=== PATIENT | female | born 1950 | race African-American/Black ===

== ENCOUNTER 2020-01-26 10:19 | Emergency (ER) | payer MEDICARE, OTHER ==
[~2020-01-26] VITALS: Ht 165.1 cm; Wt 105.0 kg
[2020-01-26] MEDS ORDERED: SODIUM CHLORIDE 0.9% 1,000 ML IV ONE (12:02)
[2020-01-26 13:55] LABS: BASOPHILS % 0.5 % (0.0-2.0); EOSINOPHILS % 1.3 % (0.0-5.0); HEMATOCRIT. 27.2 % (36.0-48.0); HEMOGLOBIN. 8.6 g/dL (12.0-16.0); LYMPHOCYTES % 26.2 % (20.0-50.0); MEAN CORPUSCULAR HEMOGLOBIN 26.7 pg (28.0-32.0); MEAN PLATELET VOLUME 8.2 fl (7.4-10.4); MONOCYTES % 8.8 % (2.0-8.0); NEUTROPHILS % 63.2 % (40.0-76.0); PLATELET 332 x1000/uL (130-400); RED BLOOD CELL COUNT 3.23 mill/uL (4.2-5.4)
[2020-01-26 13:57] LABS: CHLORIDE 112 mEq/L (98-107)
[2020-01-26 14:09] LABS: INR 0.9; PARTIAL THROMBOPLASTIN TIME 25.7 sec (23.4-31.0)
[2020-01-26 15:14] VITALS: BP 144/82
== END 2020-01-26 15:24 | disposition home or self-care (01) ==
LOC: ER 10:19
DX: N93.8 Other specified abnormal uterine and vaginal bleeding (principal); D25.9 Leiomyoma of uterus, unspecified; E11.9 Type 2 diabetes mellitus without complications; E78.00 Pure hypercholesterolemia, unspecified; I10 Essential (primary) hypertension; F03.90 Unspecified dementia, unspecified severity, without behavioral disturbance, psychotic disturbance, mood disturbance, and anxiety
CPT/HCPCS: 36415; 71045; 76830; 76856; 80053; 85025; 85610; 85730; 86850; 86900; 86901; 93005; 99285; J7030

== ENCOUNTER 2021-06-09 09:22 | Inpatient (IN) | payer MEDICARE, OTHER ==
[~2021-06-09] VITALS: Ht 165.1 cm; Wt 99.5 kg
[~2021-06-09 09:22] MED LIST: CIPR-263 MT; HYDR-4001 MT; METR500T MT
[2021-06-09] MEDS ORDERED: MORPHINE SULFATE 4 MG/ML CPJ (NOT FOR IM USE) IV STA (10:02)
[2021-06-09] MEDS ORDERED: ONDANSETRON HCL 4MG/2ML INJ IV STA (10:02)
[2021-06-09] MEDS ORDERED: NITROGLYCERIN 0.4MG TABLET SL SL PRN (10:15)
[2021-06-09] MEDS ORDERED: ASPIRIN 81MG TABLET PO ONE (10:15)
[2021-06-09 10:28] LABS: BASOPHILS % 0.4 % (0.0-2.0); EOSINOPHILS % 0.5 % (0.0-5.0); HEMATOCRIT. 41.6 % (36.0-48.0); HEMOGLOBIN. 13.7 g/dL (12.0-16.0); LYMPHOCYTES % 19.1 % (20.0-50.0); MEAN CORPUSCULAR HEMOGLOBIN 30.2 pg (28.0-32.0); MEAN CORPUSCULAR VOLUME 91.6 fL (81.0-99.0); MEAN PLATELET VOLUME 8.7 fl (7.4-10.4); MONOCYTES % 7.3 % (2.0-8.0); NEUTROPHILS % 72.7 % (40.0-76.0); PLATELET 321 x1000/uL (130-400); RED BLOOD CELL COUNT 4.54 mill/uL (4.2-5.4)
[2021-06-09 10:35] LABS: CHLORIDE 107 mEq/L (98-107)
[2021-06-09] MEDS ORDERED: MORPHINE SULFATE 2 MG/ML CPJ (NOT FOR IM USE) IV NR (10:52)
[2021-06-09] MEDS ORDERED: AMLODIPINE 5MG TABLET PO ONE (14:15)
[2021-06-09 18:45] VITALS: BP 126/95
[2021-06-09 20:00] VITALS: BP 154/91
[2021-06-09] MEDS ORDERED: CEFTRIAXONE 1 G PREMIX 50 ML IV SCH (23:15)
[2021-06-09] MEDS ORDERED: ACETAMINOPHEN 325MG TABLET PO PRN (23:15)
[2021-06-10] VITALS: BP 161/79
[2021-06-10] MEDS ORDERED: ACETAMINOPHEN 325MG TABLET PO PRN (01:00)
[2021-06-10] MEDS: CEFTRIAXONE 1,000 MG in DEXTROSE 5% WATER 50 ML IV SCH ×2 (01:21→20:08)
[2021-06-10] MEDS ORDERED: CLON0.2T PO (01:47)
[2021-06-10] MEDS ORDERED: HYDR25TA PO (01:48)
[2021-06-10] MEDS ORDERED: LOSA50TA41 PO (01:49)
[2021-06-10] MEDS ORDERED: VERA80TA7 PO (01:54)
[2021-06-10] MEDS ORDERED: LEVO50TA8 PO (01:54)
[2021-06-10] MEDS ORDERED: ASPI-1497 PO (01:54)
[2021-06-10] MEDS ORDERED: ATOR80TA PO (01:54)
[2021-06-10] MEDS ORDERED: TOPUD PO (01:56)
[2021-06-10 04:00] VITALS: BP 140/77
[2021-06-10] MEDS: LEVOTHYROXINE SODIUM 50MCG TABLET PO SCH (06:19)
[2021-06-10] MEDS ORDERED: LEVOTHYROXINE SODIUM 50MCG TABLET PO SCH (06:40)
[2021-06-10 08:00] VITALS: BP 164/87
[2021-06-10] MEDS ORDERED: LOSARTAN POTASSIUM 50 MG TABLET PO SCH (09:00)
[2021-06-10] MEDS ORDERED: HYDROCHLOROTHIAZIDE 25MG TABLET PO SCH (09:00)
[2021-06-10] MEDS ORDERED: ASPIRIN 81MG TABLET PO SCH (09:00)
[2021-06-10] MEDS ORDERED: CLONIDINE 0.2MG TABLET PO SCH (09:00)
[2021-06-10] MEDS ORDERED: VERAPAMIL HCL 80 MG TABLET PO SCH (09:00)
[2021-06-10] MEDS: CLONIDINE 0.2MG TABLET PO SCH ×2 (10:03→17:18)
[2021-06-10] MEDS: LOSARTAN POTASSIUM 50 MG TABLET PO SCH ×2 (10:03→17:18)
[2021-06-10] MEDS: ASPIRIN 81MG TABLET PO SCH (10:03)
[2021-06-10] MEDS: VERAPAMIL HCL 80 MG TABLET PO SCH ×2 (10:04→17:18)
[2021-06-10] MEDS: HYDROCHLOROTHIAZIDE 25MG TABLET PO SCH ×2 (10:04→17:17)
[2021-06-10 12:00] VITALS: BP 148/79
[2021-06-10] MEDS ORDERED: REGADENOSON 0.4 MG/5 ML IV NR (12:30)
[2021-06-10] MEDS: ENOXAPARIN 40MG/0.4ML SYR SUBCUT SCH (13:58)
[2021-06-10] MEDS: NITROGLYCERIN OINT 1GM/INCH UDPKT TD SCH ×2 (13:59→22:57)
[2021-06-10 16:00] VITALS: BP 126/74
[2021-06-10 17:40] LABS: CLARITY URINE CLOUDY (CLEAR); COLOR URINE YELLOW (YELLOW); KETONES URINE TRACE (NEGATIVE); LEUKOCYTE ESTERASE URINE 1+ (NEGATIVE); NITRITE URINE NEGATIVE (NEGATIVE); OCCULT BLOOD URINE NEGATIVE (NEGATIVE); PROTEIN URINE 3+ (NEGATIVE); SPECIFIC GRAVITY URINE 1.022 (1.005-1.030); UROBILINOGEN URINE 0.2 E.U./dL (0.2-1.0)
[2021-06-10 20:00] VITALS: BP 101/85
[2021-06-10] MEDS: ATORVASTATIN CALCIUM 40MG TABLET PO SCH (20:08)
[2021-06-10 20:36] LABS: BASOPHILS % 0.5 % (0.0-2.0); EOSINOPHILS % 1.1 % (0.0-5.0); HEMATOCRIT. 36.7 % (36.0-48.0); LYMPHOCYTES % 27.9 % (20.0-50.0); MEAN CORPUSCULAR HEMOGLOBIN 29.9 pg (28.0-32.0); MEAN CORPUSCULAR VOLUME 91.5 fL (81.0-99.0); MONOCYTES % 9.2 % (2.0-8.0); NEUTROPHILS % 61.3 % (40.0-76.0); PLATELET 265 x1000/uL (130-400); RED BLOOD CELL COUNT 4.01 mill/uL (4.2-5.4); RED CELL DISTRIBUTION WIDTH 15.1 % (11.6-14.6)
[2021-06-10] MEDS ORDERED: ATORVASTATIN CALCIUM 40MG TABLET PO SCH (21:00)
[2021-06-10 21:03] LABS: CREATINE KINASE MB FRACTION 3.2 ng/mL (0.5-3.6)
[2021-06-11] VITALS: BP 107/82
[2021-06-11 04:00] VITALS: BP 100/50
[2021-06-11] MEDS: LEVOTHYROXINE SODIUM 50MCG TABLET PO SCH (06:30)
[2021-06-11] MEDS: NITROGLYCERIN OINT 1GM/INCH UDPKT TD SCH ×3 (06:30→22:43)
[2021-06-11 07:37] LABS: BASOPHILS % 0.4 % (0.0-2.0); EOSINOPHILS % 1.3 % (0.0-5.0); HEMATOCRIT. 35.4 % (36.0-48.0); HEMOGLOBIN. 11.5 g/dL (12.0-16.0); MEAN CORPUSCULAR HEMOGLOBIN 29.8 pg (28.0-32.0); MEAN CORPUSCULAR VOLUME 91.5 fL (81.0-99.0); MEAN PLATELET VOLUME 8.9 fl (7.4-10.4); MONOCYTES % 10.2 % (2.0-8.0); NEUTROPHILS % 63.1 % (40.0-76.0); PLATELET 256 x1000/uL (130-400); RED BLOOD CELL COUNT 3.87 mill/uL (4.2-5.4); RED CELL DISTRIBUTION WIDTH 14.9 % (11.6-14.6)
[2021-06-11 07:55] VITALS: BP 104/53
[2021-06-11] MEDS: LOSARTAN POTASSIUM 50 MG TABLET PO SCH (09:00)
[2021-06-11] MEDS: CLONIDINE 0.2MG TABLET PO SCH (09:00)
[2021-06-11] MEDS: VERAPAMIL HCL 80 MG TABLET PO SCH ×2 (09:00→16:33)
[2021-06-11] MEDS: ASPIRIN 81MG TABLET PO SCH (09:55)
[2021-06-11 12:00] VITALS: BP 122/71
[2021-06-11] MEDS: ENOXAPARIN 40MG/0.4ML SYR SUBCUT SCH (14:08)
[2021-06-11 16:10] VITALS: BP 127/84
[2021-06-11 18:04] LABS: PROTHROMBIN TIME 10.4 sec (9.6-11.0)
[2021-06-11 18:27] LABS: CREATINE KINASE 192 IU/L (26-192)
[2021-06-11 20:00] VITALS: BP 118/61
[2021-06-11] MEDS: CEFTRIAXONE 1,000 MG in DEXTROSE 5% WATER 50 ML IV SCH (20:24)
[2021-06-11] MEDS: ATORVASTATIN CALCIUM 40MG TABLET PO SCH (20:24)
[2021-06-12] VITALS (7 sets, daily range): BP systolic 142–210; BP diastolic 73–106
[2021-06-12] MEDS: HYDRALAZINE 20MG/ML VIAL IV PRN ×2 (04:42→21:05)
[2021-06-12] MEDS: LEVOTHYROXINE SODIUM 50MCG TABLET PO SCH (05:50)
[2021-06-12] MEDS: NITROGLYCERIN OINT 1GM/INCH UDPKT TD SCH ×3 (05:50→21:06)
[2021-06-12 06:55] LABS: BASOPHILS % 0.5 % (0.0-2.0); EOSINOPHILS % 1.2 % (0.0-5.0); HEMATOCRIT. 38.1 % (36.0-48.0); HEMOGLOBIN. 12.5 g/dL (12.0-16.0); MEAN CORPUSCULAR HEMOGLOBIN 30.5 pg (28.0-32.0); MEAN CORPUSCULAR VOLUME 92.6 fL (81.0-99.0); MEAN PLATELET VOLUME 9.1 fl (7.4-10.4); MONOCYTES % 10.1 % (2.0-8.0); NEUTROPHILS % 64.2 % (40.0-76.0); PLATELET 255 x1000/uL (130-400); RED BLOOD CELL COUNT 4.11 mill/uL (4.2-5.4); RED CELL DISTRIBUTION WIDTH 14.8 % (11.6-14.6)
[2021-06-12 07:19] LABS: CHLORIDE 106 mEq/L (98-107)
[2021-06-12 07:31] LABS: PHOSPHORUS 3.8 mg/dL (2.5-4.9)
[2021-06-12] MEDS: ASPIRIN 81MG TABLET PO SCH (08:37)
[2021-06-12] MEDS: VERAPAMIL HCL 80 MG TABLET PO SCH ×2 (08:38→17:09)
[2021-06-12] MEDS ORDERED: REGADENOSON 0.4 MG/5 ML IV ONE (10:00)
[2021-06-12] MEDS: ENOXAPARIN 40MG/0.4ML SYR SUBCUT SCH (14:17)
[2021-06-12] MEDS: METOPROLOL TARTRATE 25MG TABLET PO SCH (21:05)
[2021-06-12] MEDS: ATORVASTATIN CALCIUM 40MG TABLET PO SCH (21:05)
[2021-06-12] MEDS: CEFTRIAXONE 1,000 MG in DEXTROSE 5% WATER 50 ML IV SCH (21:06)
[2021-06-13] VITALS (17 sets, daily range): BP systolic 123–195; BP diastolic 60–97
[2021-06-13] MEDS ORDERED: SODIUM CHLORIDE 0.9% 1,000 ML IV SCH
[2021-06-13] MEDS: LEVOTHYROXINE SODIUM 50MCG TABLET PO SCH (05:28)
[2021-06-13] MEDS: NITROGLYCERIN OINT 1GM/INCH UDPKT TD SCH ×3 (05:29→22:21)
[2021-06-13] MEDS: HYDRALAZINE 20MG/ML VIAL IV PRN (05:29)
[2021-06-13 06:24] LABS: BASOPHILS % 0.6 % (0.0-2.0); EOSINOPHILS % 1.3 % (0.0-5.0); HEMATOCRIT. 37.2 % (36.0-48.0); HEMOGLOBIN. 12.1 g/dL (12.0-16.0); LYMPHOCYTES % 18.4 % (20.0-50.0); MEAN CORPUSCULAR HEMOGLOBIN 29.9 pg (28.0-32.0); MEAN CORPUSCULAR VOLUME 91.6 fL (81.0-99.0); MEAN PLATELET VOLUME 9.1 fl (7.4-10.4); MONOCYTES % 10.3 % (2.0-8.0); NEUTROPHILS % 69.4 % (40.0-76.0); PLATELET 261 x1000/uL (130-400); RED BLOOD CELL COUNT 4.06 mill/uL (4.2-5.4); RED CELL DISTRIBUTION WIDTH 14.7 % (11.6-14.6)
[2021-06-13 07:25] LABS: PHOSPHORUS 3.3 mg/dL (2.5-4.9)
[2021-06-13] MEDS ORDERED: HEPARIN SODIUM 1,000 UNIT/1ML VIAL IV ONE (08:28)
[2021-06-13] MEDS ORDERED: NITROGLYCERIN 50MCG/ML 10ML VIAL (CATH LAB) IV ONE (08:28)
[2021-06-13] MEDS ORDERED: NICARDIPINE 100MCG/ML 10ML VIAL (CATH LAB) IV ONE (08:28)
[2021-06-13] MEDS: METOPROLOL TARTRATE 25MG TABLET PO SCH ×2 (08:39→21:02)
[2021-06-13] MEDS: VERAPAMIL HCL 80 MG TABLET PO SCH ×2 (08:39→16:30)
[2021-06-13] MEDS: ASPIRIN 81MG TABLET PO SCH (08:44)
[2021-06-13] MEDS ORDERED: MIDAZOLAM HCL 2 MG/2 ML VIAL ONE ×2 (08:51→10:48)
[2021-06-13] MEDS ORDERED: LIDOCAINE HCL 2% JELLY 5ML ONE (08:52)
[2021-06-13] MEDS ORDERED: TETRACAINE/BENZOCAINE/BUTAMBEN 20 GM SPRAY MM ONE (08:52)
[2021-06-13] MEDS ORDERED: FENTANYL CITRATE/PF 50MCG/ML 2ML VIAL ONE ×2 (08:52→10:49)
[2021-06-13] MEDS ORDERED: IODIXANOL 320MG/ML 100 ML BOTTLE IV ONE (10:49)
[2021-06-13] MEDS ORDERED: LIDOCAINE HCL 1% 30ML VIAL (10MG/ML) ONE (10:49)
[2021-06-13] MEDS ORDERED: HYDRALAZINE 20MG/ML VIAL ONE (11:55)
[2021-06-13] MEDS ORDERED: ATROPINE SULFATE 1MG/10ML SYR IV PRN (12:00)
[2021-06-13] MEDS ORDERED: ALPRAZOLAM 0.25 MG TABLET PO PRN (12:45)
[2021-06-13] MEDS ORDERED: ACETAMINOPHEN 325MG TABLET PO PRN (12:45)
[2021-06-13] MEDS: CLONIDINE 0.1MG TABLET PO SCH ×2 (14:22→22:00)
[2021-06-13 16:42] LABS: BASOPHILS % 0.3 % (0.0-2.0); EOSINOPHILS % 0.7 % (0.0-5.0); HEMATOCRIT. 38.6 % (36.0-48.0); HEMOGLOBIN. 12.6 g/dL (12.0-16.0); LYMPHOCYTES % 14.6 % (20.0-50.0); MEAN CORPUSCULAR VOLUME 91.6 fL (81.0-99.0); MEAN PLATELET VOLUME 9.1 fl (7.4-10.4); MONOCYTES % 7.6 % (2.0-8.0); NEUTROPHILS % 76.8 % (40.0-76.0); PLATELET 287 x1000/uL (130-400); RED BLOOD CELL COUNT 4.21 mill/uL (4.2-5.4); RED CELL DISTRIBUTION WIDTH 14.7 % (11.6-14.6)
[2021-06-13 16:48] LABS: CHLORIDE 108 mEq/L (98-107)
[2021-06-13] MEDS: ALLOPURINOL 300 MG TABLET PO SCH (21:00)
[2021-06-13] MEDS ORDERED: DOCUSATE SODIUM 100MG CAPSULE PO SCH (21:00)
[2021-06-13] MEDS ORDERED: ASCORBIC ACID 500 MG TABLET PO NR (21:00)
[2021-06-13] MEDS: ATORVASTATIN CALCIUM 40MG TABLET PO SCH (21:01)
[2021-06-13] MEDS: CEFTRIAXONE 1,000 MG in DEXTROSE 5% WATER 50 ML IV SCH (21:21)
[2021-06-14] VITALS (11 sets, daily range): BP systolic 106–155; BP diastolic 71–95
[2021-06-14 04:11] LABS: MICROALBUMIN RANDOM URINE 140.3 ug/mL (Not Estab.)
[2021-06-14] MEDS: CLONIDINE 0.1MG TABLET PO SCH ×3 (06:00→22:07)
[2021-06-14] MEDS: ALLOPURINOL 300 MG TABLET PO SCH (06:01)
[2021-06-14] MEDS: LEVOTHYROXINE SODIUM 50MCG TABLET PO SCH (06:01)
[2021-06-14] MEDS: NITROGLYCERIN OINT 1GM/INCH UDPKT TD SCH (06:01)
[2021-06-14 06:40] LABS: BASOPHILS % 0.4 % (0.0-2.0); EOSINOPHILS % 0.5 % (0.0-5.0); HEMATOCRIT. 36.7 % (36.0-48.0); HEMOGLOBIN. 12.1 g/dL (12.0-16.0); LYMPHOCYTES % 16.8 % (20.0-50.0); MEAN CORPUSCULAR HEMOGLOBIN 30.4 pg (28.0-32.0); MEAN PLATELET VOLUME 8.9 fl (7.4-10.4); MONOCYTES % 12.3 % (2.0-8.0); PLATELET 249 x1000/uL (130-400); RED BLOOD CELL COUNT 3.99 mill/uL (4.2-5.4); RED CELL DISTRIBUTION WIDTH 15.1 % (11.6-14.6)
[2021-06-14 08:41] LABS: PHOSPHORUS 3.7 mg/dL (2.5-4.9)
[2021-06-14] MEDS: VERAPAMIL HCL 80 MG TABLET PO SCH (09:00)
[2021-06-14] MEDS: ASPIRIN 81MG TABLET PO SCH (10:05)
[2021-06-14] MEDS: METOPROLOL TARTRATE 25MG TABLET PO SCH ×2 (10:05→20:19)
[2021-06-14] MEDS: CEFTRIAXONE 1,000 MG in DEXTROSE 5% WATER 50 ML IV SCH (20:19)
[2021-06-14] MEDS: ATORVASTATIN CALCIUM 40MG TABLET PO SCH (20:19)
[2021-06-14] MEDS: AMLODIPINE 2.5MG TABLET PO SCH (20:19)
[2021-06-15] VITALS (12 sets, daily range): BP systolic 96–130; BP diastolic 51–81
[2021-06-15] MEDS: CLONIDINE 0.1MG TABLET PO SCH ×3 (06:10→22:36)
[2021-06-15] MEDS: LEVOTHYROXINE SODIUM 50MCG TABLET PO SCH (06:11)
[2021-06-15 07:23] LABS: BASOPHILS % 0.4 % (0.0-2.0); HEMATOCRIT. 36.2 % (36.0-48.0); HEMOGLOBIN. 11.6 g/dL (12.0-16.0); LYMPHOCYTES % 20.5 % (20.0-50.0); MEAN CORPUSCULAR HEMOGLOBIN 29.7 pg (28.0-32.0); MEAN CORPUSCULAR VOLUME 92.7 fL (81.0-99.0); MEAN PLATELET VOLUME 9.2 fl (7.4-10.4); MONOCYTES % 10.9 % (2.0-8.0); NEUTROPHILS % 67.2 % (40.0-76.0); PLATELET 225 x1000/uL (130-400); RED CELL DISTRIBUTION WIDTH 15.4 % (11.6-14.6)
[2021-06-15 07:34] LABS: PHOSPHORUS 3.4 mg/dL (2.5-4.9)
[2021-06-15] MEDS: ASPIRIN 81MG TABLET PO SCH (08:24)
[2021-06-15] MEDS: ISOSORBIDE MONONITRATE 30MG TABLET SR 24HR PO SCH ×2 (08:28→09:42)
[2021-06-15] MEDS: METOPROLOL TARTRATE 25MG TABLET PO SCH ×2 (08:28→20:32)
[2021-06-15] MEDS: AMLODIPINE 2.5MG TABLET PO SCH ×2 (08:29→20:32)
[2021-06-15] MEDS: NITROGLYCERIN 0.4MG TABLET SL SL PRN ×3 (09:31→20:20)
[2021-06-15] MEDS ORDERED: LIDOCAINE HCL 1% 30ML VIAL (10MG/ML) ONE (12:21)
[2021-06-15] MEDS: ATORVASTATIN CALCIUM 40MG TABLET PO SCH (20:32)
[2021-06-16] VITALS (12 sets, daily range): BP systolic 117–162; BP diastolic 53–93
[2021-06-16] MEDS: CLONIDINE 0.1MG TABLET PO SCH (06:12)
[2021-06-16] MEDS: LEVOTHYROXINE SODIUM 50MCG TABLET PO SCH (06:12)
[2021-06-16] MEDS ORDERED: ALLOPURINOL 300 MG TABLET PO NR (07:45)
[2021-06-16 07:55] LABS: BASOPHILS % 0.6 % (0.0-2.0); EOSINOPHILS % 1.5 % (0.0-5.0); HEMATOCRIT. 35.1 % (36.0-48.0); HEMOGLOBIN. 11.4 g/dL (12.0-16.0); LYMPHOCYTES % 17.7 % (20.0-50.0); MEAN CORPUSCULAR HEMOGLOBIN 29.9 pg (28.0-32.0); MEAN CORPUSCULAR VOLUME 91.7 fL (81.0-99.0); MONOCYTES % 9.2 % (2.0-8.0); RED BLOOD CELL COUNT 3.82 mill/uL (4.2-5.4); RED CELL DISTRIBUTION WIDTH 14.7 % (11.6-14.6)
[2021-06-16] MEDS: ASPIRIN 81MG TABLET PO SCH (08:46)
[2021-06-16] MEDS: ISOSORBIDE MONONITRATE 30MG TABLET SR 24HR PO SCH (08:46)
[2021-06-16] MEDS: METOPROLOL TARTRATE 25MG TABLET PO SCH ×2 (08:46→21:19)
[2021-06-16] MEDS: ACETYLCYSTEINE 200MG/ML 20% VIAL 4ML PO SCH ×2 (08:52→21:18)
[2021-06-16] MEDS: NITROGLYCERIN 0.4MG TABLET SL SL PRN ×2 (08:52→09:00)
[2021-06-16 10:46] LABS: PLATELET 216 x1000/uL (130-400)
[2021-06-16 17:31] LABS: PROTHROMBIN TIME 10.7 sec (9.6-11.0)
[2021-06-16] MEDS: DOCUSATE SODIUM 100MG CAPSULE PO SCH (18:18)
[2021-06-16] MEDS ORDERED: BISACODYL 10MG SUPP PR PRN (21:00)
[2021-06-16] MEDS ORDERED: CHLORHEXIDINE GLUCONATE 4% EXTERNAL USE TOP SCH (21:00)
[2021-06-16] MEDS ORDERED: DIPHENHYDRAMINE 25MG CAPSULE PO PRN (21:00)
[2021-06-16] MEDS: ATORVASTATIN CALCIUM 40MG TABLET PO SCH (21:17)
[2021-06-17] VITALS (54 sets, daily range): BP systolic 79–174; BP diastolic 47–93
[2021-06-17] MEDS ORDERED: BLOOD SUGAR DIAGNOSTIC STRIP TEST SCH (04:00)
[2021-06-17] MEDS: HYDRALAZINE 20MG/ML VIAL IV PRN ×3 (04:16→18:21)
[2021-06-17] MEDS ORDERED: HEPARIN 1000 UNITS/ML 10ML ONE (05:54)
[2021-06-17] MEDS ORDERED: DOPAMINE 400MG/250ML PREMIX 250 ML IV ONE (05:54)
[2021-06-17] MEDS ORDERED: THROMBIN (BOVINE) 5000 UNITS/VIAL TOP ONE (05:56)
[2021-06-17] MEDS ORDERED: ACETAMINOPHEN 500MG TABLET ONE (05:56)
[2021-06-17] MEDS ORDERED: SKIN ADHESIVE 0.7 GM EA TOP ONE (05:56)
[2021-06-17] MEDS ORDERED: POLYMYXIN B SULFATE 500000 UNITS/VIAL ONE (05:57)
[2021-06-17] MEDS: LEVOTHYROXINE SODIUM 50MCG TABLET PO SCH (05:58)
[2021-06-17] MEDS ORDERED: CHLORHEXIDINE GLUCONATE 4% EXTERNAL USE TOP NR (06:00)
[2021-06-17] MEDS ORDERED: CEFAZOLIN 2,000 MG in DEXT 5% WATER 100 ML IV SCH (06:00)
[2021-06-17] MEDS ORDERED: PAPAVERINE HCL 180MG in SODIUM CHLORIDE 0.9% 24ML IV SCH (06:00)
[2021-06-17] MEDS ORDERED: AMINOCAPROIC ACID 5,000 MG in SODIUM CHLORIDE 0.9% 230 ML IV SCH (06:00)
[2021-06-17] MEDS ORDERED: INSULIN REGULAR (DRIP) 100 UNITS in SODIUM CHLORIDE 0.9% 99 ML IV SCH (06:00)
[2021-06-17] MEDS ORDERED: DEL NIDO ELECTROLYTE-S(PH 7.4) 1,000 ML IV SCH ×2 (06:00)
[2021-06-17] MEDS ORDERED: NOREPINEPHRINE 8 MG in DEXT 5% WATER 242 ML IV SCH (06:00)
[2021-06-17] MEDS ORDERED: EPINEPHRINE 5 MG in DEXT 5% WATER 245 ML IV SCH (06:00)
[2021-06-17 06:57] LABS: BASOPHILS % 0.8 % (0.0-2.0); EOSINOPHILS % 1.6 % (0.0-5.0); HEMATOCRIT. 38.2 % (36.0-48.0); HEMOGLOBIN. 12.7 g/dL (12.0-16.0); LYMPHOCYTES % 15.9 % (20.0-50.0); MEAN CORPUSCULAR HEMOGLOBIN 30.1 pg (28.0-32.0); MEAN CORPUSCULAR VOLUME 90.6 fL (81.0-99.0); MEAN PLATELET VOLUME 8.8 fl (7.4-10.4); MONOCYTES % 8.7 % (2.0-8.0); PLATELET 250 x1000/uL (130-400); RED BLOOD CELL COUNT 4.22 mill/uL (4.2-5.4); RED CELL DISTRIBUTION WIDTH 14.8 % (11.6-14.6)
[2021-06-17 07:08] LABS: PARTIAL THROMBOPLASTIN TIME 27.7 sec (23.4-31.0); PROTHROMBIN TIME 10.6 sec (9.6-11.0)
[2021-06-17] MEDS ORDERED: ETOMIDATE 2MG/ML 10ML VIAL IV ONE (07:09)
[2021-06-17] MEDS ORDERED: PROPOFOL 200MG/20ML VIAL IV ONE (07:09)
[2021-06-17] MEDS ORDERED: ROCURONIUM BROMIDE 10MG/ML VIAL 5ML IV ONE (07:09)
[2021-06-17] MEDS ORDERED: FENTANYL CITRATE/PF 50MCG/ML 5ML VIAL ONE (07:13)
[2021-06-17] MEDS ORDERED: LIDOCAINE HCL/PF 1% 10 MG/ML 5ML VIAL ONE (07:34)
[2021-06-17] MEDS ORDERED: SUCCINYLCHOLINE CHLORIDE 200MG/10ML IV ONE (07:36)
[2021-06-17] MEDS ORDERED: LABETALOL HCL 5MG/ML VIAL 20ML IV ONE (07:42)
[2021-06-17] MEDS ORDERED: MAGNESIUM SULFATE 5GM/10ML VIAL IV ONE (08:00)
[2021-06-17] MEDS ORDERED: HEPARIN 10,000 UNITS/ML VIAL ONE ×3 (08:00→08:14)
[2021-06-17] MEDS ORDERED: POTASSIUM CHLORIDE 10MEQ IN WATER 50ML PREMIX IV ONE (08:00)
[2021-06-17] MEDS ORDERED: MAGNESIUM SULFATE 1G IN DEXT 5% 100ML PREMIX IV ONE (08:00)
[2021-06-17] MEDS ORDERED: VANCOMYCIN HCL 500 MG/VIAL ONE (08:15)
[2021-06-17 08:45] LABS: PHOSPHORUS 2.9 mg/dL (2.5-4.9)
[2021-06-17] MEDS ORDERED: AMINOCAPROIC ACID 250 MG/ML 20ML VIAL ONE (08:45)
[2021-06-17] MEDS ORDERED: CALCIUM CHLORIDE 1GM/10ML SYR IV ONE ×2 (09:10→10:07)
[2021-06-17] MEDS ORDERED: NEOSTIGMINE METHYLSULFATE 1MG/ML 10 ML VIAL ONE (10:11)
[2021-06-17] MEDS ORDERED: GLYCOPYRROLATE 0.2 MG/ML 2ML VIAL ONE (10:11)
[2021-06-17] MEDS ORDERED: ONDANSETRON HCL 4MG/2ML INJ ONE (10:11)
[2021-06-17] MEDS ORDERED: ALBUMIN HUMAN 25GM/100ML (25%) IV ONE (10:47)
[2021-06-17] MEDS ORDERED: PROTAMINE SULFATE 10MG/ML VIAL 25ML IV ONE (10:49)
[2021-06-17] MEDS ORDERED: ACETAMINOPHEN 325MG TABLET PO PRN (11:30)
[2021-06-17] MEDS ORDERED: ALBUMIN HUMAN 25GM/100ML (25%) IV PRN (11:30)
[2021-06-17] MEDS ORDERED: MAGNESIUM SULFATE 3 GM in DEXT 5% WATER 100 ML IV PRN (11:30)
[2021-06-17] MEDS ORDERED: DOPAMINE 400MG/250ML PREMIX 250 ML IV SCH (11:30)
[2021-06-17] MEDS ORDERED: MAGNESIUM 2 G PREMIX 50 ML IV PRN (11:30)
[2021-06-17] MEDS ORDERED: CALCIUM CHLORIDE 3,000 MG in DEXT 5% WATER 250 ML IV PRN (11:30)
[2021-06-17 11:47] LABS: BG BASE EXCESS -4.3 mmol/L (-2.0-2.0); BG CARBOXYHEMOGLOBIN 0.3 % (0.5-1.5); BG DEOXYHEMOGLOBIN 5.7 % (0.0-5.0); BG METHEMOGLOBIN 0.2 % (0.0-1.5); BG OXYGEN SATURATION 94.3 % (92.0-98.5); BG OXYHEMOGLOBIN 93.8 % (94.0-97.0); BG PCO2 45.2 mmHg (35.0-45.0); BG PH 7.305 (7.350-7.450); BG PO2 83.6 mmHg (75.0-100.0); BG SAMPLE SITE ALINE; BG TOTAL HEMOGLOBIN 11.4 g/dL (12.0-18.0); BG VENT MODE MASK - NRB
[2021-06-17 11:58] LABS: BASOPHILS % 0.5 % (0.0-2.0); EOSINOPHILS % 0.3 % (0.0-5.0); HEMATOCRIT. 32.5 % (36.0-48.0); HEMOGLOBIN. 10.5 g/dL (12.0-16.0); LYMPHOCYTES % 8.5 % (20.0-50.0); MEAN CORPUSCULAR HEMOGLOBIN 29.6 pg (28.0-32.0); MEAN CORPUSCULAR VOLUME 91.7 fL (81.0-99.0); MEAN PLATELET VOLUME 8.9 fl (7.4-10.4); MONOCYTES % 9.4 % (2.0-8.0); NEUTROPHILS % 81.3 % (40.0-76.0); PLATELET 191 x1000/uL (130-400); RED BLOOD CELL COUNT 3.55 mill/uL (4.2-5.4)
[2021-06-17] MEDS: BLOOD SUGAR DIAGNOSTIC STRIP TEST SCH ×12 (12:00→23:00)
[2021-06-17] MEDS ORDERED: NALOXONE HCL 0.4MG/ML VIAL IV PRN (12:00)
[2021-06-17 12:07] LABS: INR 1.1; PROTHROMBIN TIME 11.4 sec (9.6-11.0)
[2021-06-17] MEDS: NICARDIPINE 50 MG in NS 230 ML IV SCH ×2 (12:07→17:58)
[2021-06-17] MEDS: MORPHINE SULFATE 2 MG/ML CPJ (NOT FOR IM USE) IV PRN ×2 (12:24→18:21)
[2021-06-17] MEDS ORDERED: KCL 10MEQ/50ML PREMIX 100 ML IV PRN (12:30)
[2021-06-17] MEDS ORDERED: KCL 10MEQ/50ML PREMIX 200 ML IV PRN (12:30)
[2021-06-17] MEDS: KCL 10MEQ/50ML PREMIX 150 ML IV PRN ×3 (12:36→15:15)
[2021-06-17] MEDS ORDERED: EPINEPHRINE 5 MG in DEXT 5% WATER 245 ML IV PRN (13:00)
[2021-06-17] MEDS: DEXT 5%/0.45% NACL 1000ML 1,000 ML IV SCH (13:07)
[2021-06-17] MEDS: OXYCODONE HCL/ACETAMINOPHEN 5/325MG TABLET PO PRN ×3 (13:15→22:03)
[2021-06-17] MEDS: CEFAZOLIN 1000MG PREMIX 50 ML IV SCH ×2 (13:36→22:10)
[2021-06-17] MEDS: MAGNESIUM HYDROXIDE 400MG/5ML 30ML UDC PO SCH ×4 (16:00→23:18)
[2021-06-17] MEDS: MAGNESIUM/ALUMINUM HYDROXIDE/SIMETHICONE 30ML UDC NG SCH ×4 (16:00→23:18)
[2021-06-17] MEDS: IPRATROPIUM/ALBUTEROL 0.5-3(2.5)MG/3ML NEB HHN SCH ×2 (16:43→21:08)
[2021-06-17] MEDS: CLOPIDOGREL 75MG TABLET PO SCH (16:45)
[2021-06-17] MEDS: METOPROLOL TARTRATE 25MG TABLET PO SCH ×2 (16:45→20:25)
[2021-06-17] MEDS: DOCUSATE SODIUM 100MG CAPSULE PO SCH ×2 (16:46→17:00)
[2021-06-17] MEDS: ASPIRIN 81MG TABLET PO SCH (16:46)
[2021-06-17] MEDS ORDERED: DOCUSATE SODIUM 100MG CAPSULE PO SCH (17:00)
[2021-06-17] MEDS: BACITRACIN 15GM TUBE TOP SCH (17:00)
[2021-06-17 17:38] LABS: HEMATOCRIT. 35.6 % (36.0-48.0); HEMOGLOBIN. 11.6 g/dL (12.0-16.0); MEAN CORPUSCULAR HEMOGLOBIN 29.6 pg (28.0-32.0); MEAN CORPUSCULAR VOLUME 90.7 fL (81.0-99.0); MEAN PLATELET VOLUME 9.2 fl (7.4-10.4); PLATELET 251 x1000/uL (130-400); RED BLOOD CELL COUNT 3.92 mill/uL (4.2-5.4); RED CELL DISTRIBUTION WIDTH 14.5 % (11.6-14.6)
[2021-06-17] MEDS: MAGNESIUM 1 G PREMIX 100 ML IV PRN (19:04)
[2021-06-17 19:39] LABS: PLATELET ESTIMATE NORMAL
[2021-06-17] MEDS ORDERED: DEXTROSE 50% WATER 50ML SYRINGE IV PRN ×2 (20:00)
[2021-06-17] MEDS: ATORVASTATIN CALCIUM 40MG TABLET PO SCH (20:25)
[2021-06-17] MEDS: ONDANSETRON HCL 4MG/2ML INJ IV PRN (20:33)
[2021-06-17] MEDS: INSULIN REGULAR (DRIP) 100 UNITS in SODIUM CHLORIDE 0.9% 100 ML IV SCH (20:45)
[2021-06-17] MEDS: NICARDIPINE 50 MG in SODIUM CHLORIDE 0.9% 230 ML IV PRN (22:41)
[2021-06-17] MEDS ORDERED: FUROSEMIDE 40MG/4ML VIAL IVP NR (23:12)
[2021-06-18] VITALS (80 sets, daily range): BP systolic 80–175; BP diastolic 51–110
[2021-06-18] MEDS: BLOOD SUGAR DIAGNOSTIC STRIP TEST SCH ×24 (01:00→22:58)
[2021-06-18] MEDS: IPRATROPIUM/ALBUTEROL 0.5-3(2.5)MG/3ML NEB HHN SCH ×6 (01:18→20:39)
[2021-06-18] MEDS: MAGNESIUM/ALUMINUM HYDROXIDE/SIMETHICONE 30ML UDC NG SCH ×6 (03:41→23:02)
[2021-06-18] MEDS: MAGNESIUM HYDROXIDE 400MG/5ML 30ML UDC PO SCH ×6 (03:41→23:00)
[2021-06-18] MEDS: NICARDIPINE 50 MG in SODIUM CHLORIDE 0.9% 230 ML IV PRN (03:42)
[2021-06-18] MEDS: OXYCODONE HCL/ACETAMINOPHEN 5/325MG TABLET PO PRN (03:42)
[2021-06-18] MEDS: HYDRALAZINE 20MG/ML VIAL IV PRN ×2 (03:43→18:16)
[2021-06-18 05:57] LABS: BASOPHILS % 0.1 % (0.0-2.0); HEMATOCRIT. 34.1 % (36.0-48.0); HEMOGLOBIN. 11.1 g/dL (12.0-16.0); LYMPHOCYTES % 7.9 % (20.0-50.0); MEAN CORPUSCULAR HEMOGLOBIN 29.5 pg (28.0-32.0); MEAN CORPUSCULAR VOLUME 90.7 fL (81.0-99.0); MEAN PLATELET VOLUME 9.2 fl (7.4-10.4); MONOCYTES % 10.3 % (2.0-8.0); NEUTROPHILS % 81.7 % (40.0-76.0); PLATELET 275 x1000/uL (130-400); RED BLOOD CELL COUNT 3.76 mill/uL (4.2-5.4)
[2021-06-18] MEDS: CEFAZOLIN 1000MG PREMIX 50 ML IV SCH ×2 (06:16→13:40)
[2021-06-18] MEDS: LEVOTHYROXINE SODIUM 50MCG TABLET PO SCH (07:38)
[2021-06-18] MEDS ORDERED: BLOOD SUGAR DIAGNOSTIC STRIP TEST SCH (08:00)
[2021-06-18] MEDS: FAMOTIDINE 20MG/2ML VIAL IV SCH (08:05)
[2021-06-18] MEDS: ASPIRIN 81MG TABLET PO SCH (08:05)
[2021-06-18] MEDS: CLOPIDOGREL 75MG TABLET PO SCH (08:05)
[2021-06-18] MEDS: DEXT 5%/0.45% NACL 1000ML 1,000 ML IV SCH (08:05)
[2021-06-18] MEDS: DOCUSATE SODIUM 100MG CAPSULE PO SCH ×2 (08:05→16:00)
[2021-06-18] MEDS: BACITRACIN 15GM TUBE TOP SCH ×2 (08:06→16:01)
[2021-06-18] MEDS: ONDANSETRON HCL 4MG/2ML INJ IV PRN ×2 (08:58→16:00)
[2021-06-18] MEDS: METOPROLOL TARTRATE 25MG TABLET PO SCH ×2 (09:00→14:37)
[2021-06-18] MEDS: ALBUMIN HUMAN 12.5G/250ML (5%) IV PRN ×4 (11:24→12:00)
[2021-06-18] MEDS: ALBUMIN HUMAN 25GM/500ML (5%) IV NR ×2 (11:57→13:00)
[2021-06-18] MEDS ORDERED: FUROSEMIDE 20MG/2ML VIAL IVP NR (15:00)
[2021-06-18] MEDS: INSULIN REGULAR (DRIP) 100 UNITS in SODIUM CHLORIDE 0.9% 100 ML IV SCH (15:48)
[2021-06-18] MEDS: METOPROLOL TARTRATE 50MG TABLET PO SCH (20:52)
[2021-06-18] MEDS: ATORVASTATIN CALCIUM 40MG TABLET PO SCH (20:52)
[2021-06-18] MEDS: HYDRALAZINE HCL 25MG TABLET PO SCH (22:06)
[2021-06-19] VITALS (47 sets, daily range): BP systolic 95–165; BP diastolic 55–92
[2021-06-19] MEDS: BLOOD SUGAR DIAGNOSTIC STRIP TEST SCH ×20 (00:03→21:19)
[2021-06-19] MEDS: OXYCODONE HCL/ACETAMINOPHEN 5/325MG TABLET PO PRN (00:25)
[2021-06-19] MEDS: IPRATROPIUM/ALBUTEROL 0.5-3(2.5)MG/3ML NEB HHN SCH ×6 (00:27→20:23)
[2021-06-19] MEDS: ACETAMINOPHEN 325MG TABLET PO PRN ×3 (01:26→13:00)
[2021-06-19] MEDS: DEXT 5%/0.45% NACL 1000ML 1,000 ML IV SCH (03:23)
[2021-06-19] MEDS: MAGNESIUM/ALUMINUM HYDROXIDE/SIMETHICONE 30ML UDC NG SCH (04:00)
[2021-06-19] MEDS: MAGNESIUM HYDROXIDE 400MG/5ML 30ML UDC PO SCH ×5 (04:56→20:35)
[2021-06-19] MEDS: HYDRALAZINE HCL 25MG TABLET PO SCH (04:57)
[2021-06-19 05:37] LABS: BASOPHILS % 0.2 % (0.0-2.0); EOSINOPHILS % 0.1 % (0.0-5.0); HEMATOCRIT. 33.8 % (36.0-48.0); HEMOGLOBIN. 10.9 g/dL (12.0-16.0); LYMPHOCYTES % 9.3 % (20.0-50.0); MEAN CORPUSCULAR HEMOGLOBIN 29.2 pg (28.0-32.0); MEAN CORPUSCULAR VOLUME 90.1 fL (81.0-99.0); MEAN PLATELET VOLUME 9.2 fl (7.4-10.4); MONOCYTES % 11.1 % (2.0-8.0); NEUTROPHILS % 79.3 % (40.0-76.0); PLATELET 266 x1000/uL (130-400); RED BLOOD CELL COUNT 3.75 mill/uL (4.2-5.4); RED CELL DISTRIBUTION WIDTH 15.1 % (11.6-14.6)
[2021-06-19 06:46] LABS: PHOSPHORUS 3.4 mg/dL (2.5-4.9)
[2021-06-19] MEDS: LEVOTHYROXINE SODIUM 50MCG TABLET PO SCH (06:52)
[2021-06-19] MEDS: MAGNESIUM 1 G PREMIX 100 ML IV PRN (08:23)
[2021-06-19] MEDS: ASPIRIN 81MG TABLET PO SCH (08:30)
[2021-06-19] MEDS: DOCUSATE SODIUM 100MG CAPSULE PO SCH ×2 (08:30→16:44)
[2021-06-19] MEDS: FAMOTIDINE 20MG/2ML VIAL IV SCH (08:30)
[2021-06-19] MEDS: CLOPIDOGREL 75MG TABLET PO SCH (08:30)
[2021-06-19] MEDS: METOPROLOL TARTRATE 50MG TABLET PO SCH ×2 (08:31→21:00)
[2021-06-19] MEDS: BACITRACIN 15GM TUBE TOP SCH ×2 (08:32→16:44)
[2021-06-19] MEDS: CLONIDINE 0.1MG TABLET PO SCH ×2 (09:13→14:42)
[2021-06-19] MEDS ORDERED: FUROSEMIDE 40MG/4ML VIAL IVP NR (10:30)
[2021-06-19] MEDS: INSULIN REGULAR (DRIP) 100 UNITS in SODIUM CHLORIDE 0.9% 100 ML IV SCH (11:09)
[2021-06-19] MEDS ORDERED: HYDRALAZINE HCL 50MG TABLET PO SCH (14:00)
[2021-06-19] MEDS ORDERED: FUROSEMIDE 40MG TABLET PO NR (15:00)
[2021-06-19] MEDS ORDERED: ALBUMIN HUMAN 25GM/500ML (5%) IV NR (16:00)
[2021-06-19] MEDS ORDERED: DOPAMINE 800MG PREMIX (DOUBLE) 250 ML IV PRN ×2 (19:00→22:59)
[2021-06-19] MEDS ORDERED: DEXTROSE 50% WATER 50ML SYRINGE IV PRN (19:00)
[2021-06-19] MEDS: ONDANSETRON HCL 4MG/2ML INJ IV PRN (19:24)
[2021-06-19] MEDS: ATORVASTATIN CALCIUM 40MG TABLET PO SCH (21:00)
[2021-06-19] MEDS: INSULIN LISPRO 100 UNITS/ML SUBCUT SCH (21:26)
[2021-06-19] MEDS ORDERED: ALBUMIN HUMAN 25GM/100ML (25%) IV NR (23:00)
[2021-06-19] MEDS ORDERED: CALCIUM CHLORIDE 3,000 MG in DEXT 5% WATER 90 ML IV ONE (23:00)
[2021-06-20] VITALS (60 sets, daily range): BP systolic 104–201; BP diastolic 45–108
[2021-06-20] MEDS: IPRATROPIUM/ALBUTEROL 0.5-3(2.5)MG/3ML NEB HHN SCH ×6 (00:12→20:56)
[2021-06-20] MEDS: ONDANSETRON HCL 4MG/2ML INJ IV PRN ×4 (00:18→12:36)
[2021-06-20] MEDS: DEXT 5%/0.45% NACL 1000ML 1,000 ML IV SCH ×2 (00:33→14:55)
[2021-06-20] MEDS: MAGNESIUM HYDROXIDE 400MG/5ML 30ML UDC PO SCH ×6 (04:00→16:00)
[2021-06-20] MEDS: HYDRALAZINE 20MG/ML VIAL IV PRN (06:05)
[2021-06-20] MEDS ORDERED: FUROSEMIDE 20MG/2ML VIAL IVP SCH ×2 (06:15→06:30)
[2021-06-20 07:13] LABS: BASOPHILS % 0.2 % (0.0-2.0); EOSINOPHILS % 0.1 % (0.0-5.0); HEMATOCRIT. 30.8 % (36.0-48.0); HEMOGLOBIN. 10.1 g/dL (12.0-16.0); MEAN CORPUSCULAR HEMOGLOBIN 30.3 pg (28.0-32.0); MEAN CORPUSCULAR VOLUME 92.1 fL (81.0-99.0); MONOCYTES % 12.5 % (2.0-8.0); NEUTROPHILS % 78.2 % (40.0-76.0); PLATELET 234 x1000/uL (130-400); RED BLOOD CELL COUNT 3.34 mill/uL (4.2-5.4); RED CELL DISTRIBUTION WIDTH 15.2 % (11.6-14.6)
[2021-06-20 07:33] LABS: PHOSPHORUS 5.2 mg/dL (2.5-4.9)
[2021-06-20] MEDS: BLOOD SUGAR DIAGNOSTIC STRIP TEST SCH ×4 (08:07→20:56)
[2021-06-20] MEDS: INSULIN LISPRO 100 UNITS/ML SUBCUT SCH ×4 (08:08→20:56)
[2021-06-20] MEDS: ACETAMINOPHEN 325MG TABLET PO PRN ×2 (08:30→12:37)
[2021-06-20] MEDS: ASPIRIN 81MG TABLET PO SCH (08:30)
[2021-06-20] MEDS: DOCUSATE SODIUM 100MG CAPSULE PO SCH ×2 (08:30→17:25)
[2021-06-20] MEDS: CLOPIDOGREL 75MG TABLET PO SCH (08:30)
[2021-06-20] MEDS: LEVOTHYROXINE SODIUM 50MCG TABLET PO SCH (08:30)
[2021-06-20] MEDS: METOPROLOL TARTRATE 50MG TABLET PO SCH ×2 (08:31→20:56)
[2021-06-20] MEDS: FAMOTIDINE 20MG/2ML VIAL IV SCH (08:31)
[2021-06-20] MEDS: BACITRACIN 15GM TUBE TOP SCH ×2 (08:32→17:26)
[2021-06-20 08:45] LABS: BG CARBOXYHEMOGLOBIN 0.3 % (0.5-1.5); BG DEOXYHEMOGLOBIN 10.7 % (0.0-5.0); BG FRACTION INSPIRED OXYGEN 40; BG HCO3 ACT 28.4 mmol/L (22.0-26.0); BG OXYGEN SATURATION 89.3 % (92.0-98.5); BG PCO2 37.5 mmHg (35.0-45.0); BG PH 7.497 (7.350-7.450); BG PO2 55.6 mmHg (75.0-100.0); BG SAMPLE SITE RIGHT RADIAL; BG TOTAL HEMOGLOBIN 11.4 g/dL (12.0-18.0); BG VENT MODE NASAL CANNULA
[2021-06-20] MEDS ORDERED: SODIUM CHLORIDE 0.45% 1,000 ML IV SCH (11:30)
[2021-06-20] MEDS: PIPERACILLIN/TAZOBACTAM 3.375 G in DEXTROSE 5% WATER 50 ML IV SCH ×2 (11:42→20:55)
[2021-06-20 11:48] LABS: CLARITY URINE CLEAR (CLEAR); COLOR URINE YELLOW (YELLOW); KETONES URINE NEGATIVE (NEGATIVE); LEUKOCYTE ESTERASE URINE NEGATIVE (NEGATIVE); NITRITE URINE NEGATIVE (NEGATIVE); OCCULT BLOOD URINE 2+ (NEGATIVE); PROTEIN URINE TRACE (NEGATIVE); SPECIFIC GRAVITY URINE 1.012 (1.005-1.030); UROBILINOGEN URINE 0.2 E.U./dL (0.2-1.0)
[2021-06-20] MEDS ORDERED: FUROSEMIDE 40MG/4ML VIAL IVP NR (17:08)
[2021-06-20] MEDS: MINERAL OIL 30ML BOTTLE PO SCH (17:25)
[2021-06-20] MEDS: ATORVASTATIN CALCIUM 40MG TABLET PO SCH (20:55)
[2021-06-21] VITALS (52 sets, daily range): BP systolic 107–182; BP diastolic 58–107
[2021-06-21] MEDS: IPRATROPIUM/ALBUTEROL 0.5-3(2.5)MG/3ML NEB HHN SCH ×6 (00:42→20:28)
[2021-06-21] MEDS: MINERAL OIL 30ML BOTTLE PO SCH ×2 (04:46→16:19)
[2021-06-21] MEDS: DEXT 5%/0.45% NACL 1000ML 1,000 ML IV SCH ×2 (04:47→17:16)
[2021-06-21] MEDS ORDERED: ALBUMIN HUMAN 25GM/100ML (25%) IV SCH ×4 (07:15→11:30)
[2021-06-21] MEDS: BLOOD SUGAR DIAGNOSTIC STRIP TEST SCH ×4 (07:50→21:52)
[2021-06-21] MEDS: INSULIN LISPRO 100 UNITS/ML SUBCUT SCH ×4 (08:20→21:00)
[2021-06-21] MEDS ORDERED: METOPROLOL TARTRATE 50MG TABLET PO SCH (09:00)
[2021-06-21 09:14] LABS: BASOPHILS % 0.3 % (0.0-2.0); EOSINOPHILS % 0.6 % (0.0-5.0); HEMATOCRIT. 28.5 % (36.0-48.0); HEMOGLOBIN. 9.2 g/dL (12.0-16.0); LYMPHOCYTES % 11.4 % (20.0-50.0); MEAN CORPUSCULAR HEMOGLOBIN 29.9 pg (28.0-32.0); MEAN CORPUSCULAR VOLUME 92.9 fL (81.0-99.0); MEAN PLATELET VOLUME 9.4 fl (7.4-10.4); MONOCYTES % 14.6 % (2.0-8.0); NEUTROPHILS % 73.1 % (40.0-76.0); PLATELET 256 x1000/uL (130-400); RED BLOOD CELL COUNT 3.06 mill/uL (4.2-5.4); RED CELL DISTRIBUTION WIDTH 15.2 % (11.6-14.6)
[2021-06-21] MEDS: CLOPIDOGREL 75MG TABLET PO SCH (09:20)
[2021-06-21] MEDS: FAMOTIDINE 20MG/2ML VIAL IV SCH (09:20)
[2021-06-21] MEDS: ASPIRIN 81MG TABLET PO SCH (09:20)
[2021-06-21] MEDS: LEVOTHYROXINE SODIUM 50MCG TABLET PO SCH (09:20)
[2021-06-21] MEDS: DOCUSATE SODIUM 100MG CAPSULE PO SCH ×2 (09:20→16:19)
[2021-06-21] MEDS: BACITRACIN 15GM TUBE TOP SCH ×2 (09:22→16:20)
[2021-06-21] MEDS: PIPERACILLIN/TAZOBACTAM 3.375 G in DEXTROSE 5% WATER 50 ML IV SCH ×2 (09:23→21:52)
[2021-06-21] MEDS: THROAT LOZENGES-BENZOCAINE/MENTH/CETYLPYRD CL LOZENGES MM SCH ×3 (11:00→16:21)
[2021-06-21] MEDS: OXYCODONE HCL/ACETAMINOPHEN 5/325MG TABLET PO PRN (12:04)
[2021-06-21] MEDS: METOCLOPRAMIDE HCL 10MG/2ML VIAL IV SCH ×2 (12:19→17:09)
[2021-06-21] MEDS ORDERED: METOPROLOL TARTRATE 25MG TABLET PO NR (13:45)
[2021-06-21] MEDS: ATORVASTATIN CALCIUM 40MG TABLET PO SCH (21:51)
[2021-06-22] VITALS (33 sets, daily range): BP systolic 103–196; BP diastolic 57–121
[2021-06-22] MEDS: IPRATROPIUM/ALBUTEROL 0.5-3(2.5)MG/3ML NEB HHN SCH ×6 (00:38→20:32)
[2021-06-22] MEDS: HYDRALAZINE 20MG/ML VIAL IV PRN ×2 (03:21→09:48)
[2021-06-22 06:21] LABS: HEMATOCRIT. 29.2 % (36.0-48.0); HEMOGLOBIN. 9.5 g/dL (12.0-16.0); MEAN CORPUSCULAR HEMOGLOBIN 29.9 pg (28.0-32.0); MEAN PLATELET VOLUME 9.2 fl (7.4-10.4); PLATELET 282 x1000/uL (130-400); RED BLOOD CELL COUNT 3.17 mill/uL (4.2-5.4)
[2021-06-22] MEDS: METOCLOPRAMIDE HCL 10MG/2ML VIAL IV SCH ×5 (06:52→23:02)
[2021-06-22 07:05] LABS: PHOSPHORUS 3.7 mg/dL (2.5-4.9)
[2021-06-22] MEDS: LEVOTHYROXINE SODIUM 50MCG TABLET PO SCH (07:50)
[2021-06-22] MEDS: INSULIN LISPRO 100 UNITS/ML SUBCUT SCH ×4 (08:20→21:03)
[2021-06-22] MEDS: BLOOD SUGAR DIAGNOSTIC STRIP TEST SCH ×4 (08:49→21:00)
[2021-06-22] MEDS: CLOPIDOGREL 75MG TABLET PO SCH (09:00)
[2021-06-22] MEDS: DOCUSATE SODIUM 100MG CAPSULE PO SCH ×2 (09:00→16:00)
[2021-06-22] MEDS: THROAT LOZENGES-BENZOCAINE/MENTH/CETYLPYRD CL LOZENGES MM SCH ×3 (09:00→16:00)
[2021-06-22] MEDS: ASPIRIN 81MG TABLET PO SCH (09:00)
[2021-06-22] MEDS: BACITRACIN 15GM TUBE TOP SCH ×2 (09:04→18:12)
[2021-06-22] MEDS: PIPERACILLIN/TAZOBACTAM 3.375 G in DEXTROSE 5% WATER 50 ML IV SCH ×2 (09:05→21:02)
[2021-06-22] MEDS: FAMOTIDINE 20MG/2ML VIAL IV SCH (09:05)
[2021-06-22] MEDS: METOPROLOL TARTRATE 5MG/5ML VIAL IV SCH ×3 (10:37→23:02)
[2021-06-22] MEDS: DEXT 5%/0.45% NACL 1000ML 1,000 ML IV SCH (15:06)
[2021-06-22] MEDS: ACETAMINOPHEN 325MG TABLET PO PRN (15:06)
[2021-06-22 17:06] LABS: PLATELET ESTIMATE NORMAL
[2021-06-22] MEDS: ATORVASTATIN CALCIUM 40MG TABLET PO SCH (21:02)
[2021-06-23] VITALS (32 sets, daily range): BP systolic 121–178; BP diastolic 64–104
[2021-06-23] MEDS ORDERED: DIATR MEGLU/DIATRIZOATE SOLN 30ML PO SCH (00:30)
[2021-06-23] MEDS: IPRATROPIUM/ALBUTEROL 0.5-3(2.5)MG/3ML NEB HHN SCH ×6 (00:36→20:47)
[2021-06-23] MEDS: METOCLOPRAMIDE HCL 10MG/2ML VIAL IV SCH ×2 (05:17→11:56)
[2021-06-23] MEDS: ACETAMINOPHEN 325MG TABLET PO PRN (05:17)
[2021-06-23] MEDS: METOPROLOL TARTRATE 5MG/5ML VIAL IV SCH ×4 (05:18→23:48)
[2021-06-23 06:20] LABS: BASOPHILS % 0.2 % (0.0-2.0); EOSINOPHILS % 0.7 % (0.0-5.0); HEMATOCRIT. 28.8 % (36.0-48.0); HEMOGLOBIN. 9.3 g/dL (12.0-16.0); LYMPHOCYTES % 10.2 % (20.0-50.0); MEAN CORPUSCULAR HEMOGLOBIN 29.6 pg (28.0-32.0); MEAN CORPUSCULAR VOLUME 91.4 fL (81.0-99.0); MEAN PLATELET VOLUME 8.9 fl (7.4-10.4); MONOCYTES % 14.1 % (2.0-8.0); NEUTROPHILS % 74.8 % (40.0-76.0); PLATELET 312 x1000/uL (130-400); RED BLOOD CELL COUNT 3.15 mill/uL (4.2-5.4); RED CELL DISTRIBUTION WIDTH 15.2 % (11.6-14.6)
[2021-06-23 06:28] LABS: PHOSPHORUS 3.4 mg/dL (2.5-4.9)
[2021-06-23] MEDS: LEVOTHYROXINE SODIUM 50MCG TABLET PO SCH (08:10)
[2021-06-23] MEDS: FAMOTIDINE 20MG/2ML VIAL IV SCH (08:10)
[2021-06-23] MEDS: PIPERACILLIN/TAZOBACTAM 3.375 G in DEXTROSE 5% WATER 50 ML IV SCH ×2 (08:10→21:32)
[2021-06-23] MEDS: ASPIRIN 81MG TABLET PO SCH (08:10)
[2021-06-23] MEDS: CLOPIDOGREL 75MG TABLET PO SCH (08:10)
[2021-06-23] MEDS: BACITRACIN 15GM TUBE TOP SCH ×2 (08:14→17:38)
[2021-06-23] MEDS: THROAT LOZENGES-BENZOCAINE/MENTH/CETYLPYRD CL LOZENGES MM SCH ×3 (08:14→17:00)
[2021-06-23] MEDS: DOCUSATE SODIUM 100MG CAPSULE PO SCH ×2 (08:14→17:00)
[2021-06-23] MEDS: BLOOD SUGAR DIAGNOSTIC STRIP TEST SCH ×4 (08:15→21:09)
[2021-06-23] MEDS: INSULIN LISPRO 100 UNITS/ML SUBCUT SCH ×4 (08:15→21:00)
[2021-06-23] MEDS: HYDRALAZINE 20MG/ML VIAL IV PRN (09:11)
[2021-06-23] MEDS: DEXT 5%/0.45% NACL 1000ML 1,000 ML IV SCH (11:56)
[2021-06-23 12:24] LABS: CLARITY URINE CLOUDY (CLEAR); COLOR URINE ORANGE (YELLOW); KETONES URINE NEGATIVE (NEGATIVE); LEUKOCYTE ESTERASE URINE 1+ (NEGATIVE); NITRITE URINE NEGATIVE (NEGATIVE); OCCULT BLOOD URINE 3+ (NEGATIVE); PROTEIN URINE 1+ (NEGATIVE); SPECIFIC GRAVITY URINE 1.019 (1.005-1.030); UROBILINOGEN URINE 0.2 E.U./dL (0.2-1.0)
[2021-06-23] MEDS ORDERED: HYDRALAZINE 20MG/ML VIAL IV ONE (13:30)
[2021-06-23] MEDS ORDERED: HYDRALAZINE 20MG/ML VIAL IV SCH (13:45)
[2021-06-23] MEDS ORDERED: CLONIDINE HCL 0.1MG/24HR PATCH TD SCH (15:00)
[2021-06-23] MEDS: ATORVASTATIN CALCIUM 40MG TABLET PO SCH (21:09)
[2021-06-24] VITALS (13 sets, daily range): BP systolic 102–167; BP diastolic 66–90
[2021-06-24] MEDS: IPRATROPIUM/ALBUTEROL 0.5-3(2.5)MG/3ML NEB HHN SCH ×6 (00:19→20:19)
[2021-06-24] MEDS: METOPROLOL TARTRATE 5MG/5ML VIAL IV SCH ×3 (05:44→17:13)
[2021-06-24] MEDS: BLOOD SUGAR DIAGNOSTIC STRIP TEST SCH ×4 (05:59→22:15)
[2021-06-24] MEDS: LEVOTHYROXINE SODIUM 50MCG TABLET PO SCH (05:59)
[2021-06-24 06:45] LABS: BASOPHILS % 0.1 % (0.0-2.0); EOSINOPHILS % 0.7 % (0.0-5.0); HEMOGLOBIN. 8.6 g/dL (12.0-16.0); LYMPHOCYTES % 11.1 % (20.0-50.0); MEAN CORPUSCULAR HEMOGLOBIN 29.8 pg (28.0-32.0); MEAN PLATELET VOLUME 8.7 fl (7.4-10.4); MONOCYTES % 13.1 % (2.0-8.0); PLATELET 316 x1000/uL (130-400); RED BLOOD CELL COUNT 2.87 mill/uL (4.2-5.4); RED CELL DISTRIBUTION WIDTH 15.7 % (11.6-14.6)
[2021-06-24] MEDS: INSULIN LISPRO 100 UNITS/ML SUBCUT SCH ×4 (07:01→21:00)
[2021-06-24] MEDS: DOCUSATE SODIUM 100MG CAPSULE PO SCH ×2 (07:02→16:56)
[2021-06-24] MEDS: BACITRACIN 15GM TUBE TOP SCH ×2 (08:36→16:56)
[2021-06-24] MEDS: FAMOTIDINE 20MG/2ML VIAL IV SCH (08:36)
[2021-06-24] MEDS: CLOPIDOGREL 75MG TABLET PO SCH (08:36)
[2021-06-24] MEDS: ASPIRIN 81MG TABLET PO SCH (08:36)
[2021-06-24] MEDS: PIPERACILLIN/TAZOBACTAM 3.375 G in DEXTROSE 5% WATER 50 ML IV SCH ×2 (08:37→22:10)
[2021-06-24] MEDS: THROAT LOZENGES-BENZOCAINE/MENTH/CETYLPYRD CL LOZENGES MM SCH ×3 (09:00→17:00)
[2021-06-24] MEDS: PANTOPRAZOLE SODIUM 40 MG/VIAL IV SCH ×2 (10:08→17:12)
[2021-06-24] MEDS: METOCLOPRAMIDE HCL 10MG/2ML VIAL IV SCH ×2 (12:44→17:13)
[2021-06-24] MEDS: DEXT 5%/0.45% NACL 1000ML 1,000 ML IV SCH (12:55)
[2021-06-24 15:58] LABS: PROTHROMBIN TIME 10.9 sec (9.6-11.0)
[2021-06-24 16:02] LABS: TOTAL IRON BINDING CAPACITY 114 ug/dL (250-450)
[2021-06-24 16:24] LABS: FERRITIN 573 ng/mL (10-291)
[2021-06-24 16:43] LABS: VITAMIN B12 SERUM 964 pg/mL (211-911)
[2021-06-24] MEDS: ATORVASTATIN CALCIUM 40MG TABLET PO SCH (22:09)
[2021-06-25] VITALS (12 sets, daily range): BP systolic 132–166; BP diastolic 78–100
[2021-06-25] MEDS: METOPROLOL TARTRATE 5MG/5ML VIAL IV SCH ×5 (00:08→23:45)
[2021-06-25] MEDS: METOCLOPRAMIDE HCL 10MG/2ML VIAL IV SCH ×5 (00:18→23:45)
[2021-06-25] MEDS: IPRATROPIUM/ALBUTEROL 0.5-3(2.5)MG/3ML NEB HHN SCH ×6 (00:21→20:00)
[2021-06-25] MEDS: LEVOTHYROXINE SODIUM 50MCG TABLET PO SCH (06:26)
[2021-06-25] MEDS: PIPERACILLIN/TAZOBACTAM 3.375 G in DEXTROSE 5% WATER 50 ML IV SCH ×3 (06:27→21:00)
[2021-06-25] MEDS: BLOOD SUGAR DIAGNOSTIC STRIP TEST SCH ×4 (06:31→20:51)
[2021-06-25 06:59] LABS: BASOPHILS % 0.3 % (0.0-2.0); HEMATOCRIT. 26.7 % (36.0-48.0); HEMOGLOBIN. 8.6 g/dL (12.0-16.0); LYMPHOCYTES % 11.2 % (20.0-50.0); MEAN CORPUSCULAR HEMOGLOBIN 29.3 pg (28.0-32.0); MEAN CORPUSCULAR VOLUME 91.2 fL (81.0-99.0); MEAN PLATELET VOLUME 8.6 fl (7.4-10.4); MONOCYTES % 10.3 % (2.0-8.0); NEUTROPHILS % 77.2 % (40.0-76.0); PLATELET 380 x1000/uL (130-400); RED BLOOD CELL COUNT 2.93 mill/uL (4.2-5.4); RED CELL DISTRIBUTION WIDTH 15.3 % (11.6-14.6)
[2021-06-25 07:15] LABS: PHOSPHORUS 3.3 mg/dL (2.5-4.9)
[2021-06-25] MEDS: INSULIN LISPRO 100 UNITS/ML SUBCUT SCH ×4 (07:20→20:51)
[2021-06-25] MEDS: PANTOPRAZOLE SODIUM 40 MG/VIAL IV SCH ×2 (09:08→17:07)
[2021-06-25] MEDS: DOCUSATE SODIUM 100MG CAPSULE PO SCH ×2 (09:08→17:08)
[2021-06-25] MEDS: BACITRACIN 15GM TUBE TOP SCH ×2 (09:08→17:08)
[2021-06-25] MEDS: THROAT LOZENGES-BENZOCAINE/MENTH/CETYLPYRD CL LOZENGES MM SCH ×4 (09:11→17:07)
[2021-06-25] MEDS: DEXTROSE 5% WATER 1,000 ML IV SCH (11:33)
[2021-06-25] MEDS ORDERED: ASPIRIN 300MG SUPP PR SCH (12:00)
[2021-06-25] MEDS: ATORVASTATIN CALCIUM 40MG TABLET PO SCH (20:59)
[2021-06-26] VITALS (12 sets, daily range): BP systolic 121–164; BP diastolic 57–97
[2021-06-26] MEDS: IPRATROPIUM/ALBUTEROL 0.5-3(2.5)MG/3ML NEB HHN SCH ×5 (04:00→21:18)
[2021-06-26 06:21] LABS: BASOPHILS % 0.3 % (0.0-2.0); HEMATOCRIT. 26.5 % (36.0-48.0); HEMOGLOBIN. 8.4 g/dL (12.0-16.0); LYMPHOCYTES % 9.5 % (20.0-50.0); MEAN CORPUSCULAR HEMOGLOBIN 29.2 pg (28.0-32.0); MEAN CORPUSCULAR VOLUME 91.9 fL (81.0-99.0); MEAN PLATELET VOLUME 8.4 fl (7.4-10.4); MONOCYTES % 10.1 % (2.0-8.0); NEUTROPHILS % 79.1 % (40.0-76.0); PLATELET 422 x1000/uL (130-400); RED BLOOD CELL COUNT 2.89 mill/uL (4.2-5.4); RED CELL DISTRIBUTION WIDTH 15.6 % (11.6-14.6)
[2021-06-26] MEDS: INSULIN LISPRO 100 UNITS/ML SUBCUT SCH ×4 (06:30→20:43)
[2021-06-26] MEDS: BLOOD SUGAR DIAGNOSTIC STRIP TEST SCH ×4 (06:30→20:43)
[2021-06-26] MEDS: LEVOTHYROXINE SODIUM 50MCG TABLET PO SCH (06:31)
[2021-06-26] MEDS: METOCLOPRAMIDE HCL 10MG/2ML VIAL IV SCH ×4 (06:31→23:45)
[2021-06-26] MEDS: METOPROLOL TARTRATE 5MG/5ML VIAL IV SCH (06:32)
[2021-06-26 06:37] LABS: PHOSPHORUS 3.2 mg/dL (2.5-4.9)
[2021-06-26] MEDS: ASPIRIN 81MG TABLET PO SCH (09:07)
[2021-06-26] MEDS: BACITRACIN 15GM TUBE TOP SCH ×2 (09:07→16:59)
[2021-06-26] MEDS: THROAT LOZENGES-BENZOCAINE/MENTH/CETYLPYRD CL LOZENGES MM SCH ×3 (09:07→16:59)
[2021-06-26] MEDS: PANTOPRAZOLE SODIUM 40 MG/VIAL IV SCH ×2 (09:07→16:59)
[2021-06-26] MEDS: DOCUSATE SODIUM 100MG CAPSULE PO SCH (09:08)
[2021-06-26] MEDS: DEXTROSE 5% WATER 1,000 ML IV SCH (09:09)
[2021-06-26] MEDS: CLOPIDOGREL 75MG TABLET PO SCH (09:09)
[2021-06-26] MEDS: POLYETHYLENE GLYCOL 3350 (17GM) 1 DOSE PACK PO SCH (12:00)
[2021-06-26] MEDS ORDERED: METOPROLOL TARTRATE 5MG/5ML VIAL IV PRN (12:00)
[2021-06-26] MEDS: METOPROLOL TARTRATE 25MG TABLET PO SCH ×2 (12:29→20:44)
[2021-06-26] MEDS: HYDRALAZINE 20MG/ML VIAL IV PRN (12:31)
[2021-06-26] MEDS ORDERED: BISACODYL 10MG SUPP PR NR (20:00)
[2021-06-26] MEDS: SENNOSIDES/DOCUSATE SOD 8.6/50MG TABLET PO SCH (20:43)
[2021-06-26] MEDS: ATORVASTATIN CALCIUM 40MG TABLET PO SCH (20:43)
[2021-06-26] MEDS: AMLODIPINE 5MG TABLET PO SCH (20:44)
[2021-06-27] VITALS (12 sets, daily range): BP systolic 132–157; BP diastolic 59–88
[2021-06-27] MEDS: IPRATROPIUM/ALBUTEROL 0.5-3(2.5)MG/3ML NEB HHN SCH ×7 (01:29→23:59)
[2021-06-27] MEDS: DEXTROSE 5% WATER 1,000 ML IV SCH (05:48)
[2021-06-27] MEDS: METOCLOPRAMIDE HCL 10MG/2ML VIAL IV SCH (05:49)
[2021-06-27] MEDS: INSULIN LISPRO 100 UNITS/ML SUBCUT SCH ×4 (05:50→21:24)
[2021-06-27] MEDS: BLOOD SUGAR DIAGNOSTIC STRIP TEST SCH ×4 (05:50→21:20)
[2021-06-27] MEDS: LEVOTHYROXINE SODIUM 50MCG TABLET PO SCH (05:50)
[2021-06-27 06:46] LABS: BASOPHILS % 0.3 % (0.0-2.0); EOSINOPHILS % 1.2 % (0.0-5.0); HEMATOCRIT. 28.9 % (36.0-48.0); HEMOGLOBIN. 9.3 g/dL (12.0-16.0); LYMPHOCYTES % 12.6 % (20.0-50.0); MEAN CORPUSCULAR HEMOGLOBIN 29.7 pg (28.0-32.0); MEAN PLATELET VOLUME 8.1 fl (7.4-10.4); MONOCYTES % 11.1 % (2.0-8.0); NEUTROPHILS % 74.8 % (40.0-76.0); PLATELET 429 x1000/uL (130-400); RED BLOOD CELL COUNT 3.14 mill/uL (4.2-5.4); RED CELL DISTRIBUTION WIDTH 15.2 % (11.6-14.6)
[2021-06-27 07:50] LABS: PHOSPHORUS 2.7 mg/dL (2.5-4.9)
[2021-06-27] MEDS: THROAT LOZENGES-BENZOCAINE/MENTH/CETYLPYRD CL LOZENGES MM SCH ×3 (08:46→17:53)
[2021-06-27] MEDS: METOPROLOL TARTRATE 25MG TABLET PO SCH (08:46)
[2021-06-27] MEDS: AMLODIPINE 5MG TABLET PO SCH ×2 (08:47→21:20)
[2021-06-27] MEDS: ASPIRIN 81MG TABLET PO SCH (08:47)
[2021-06-27] MEDS: BACITRACIN 15GM TUBE TOP SCH ×2 (08:47→17:53)
[2021-06-27] MEDS: PANTOPRAZOLE SODIUM 40 MG/VIAL IV SCH ×2 (08:47→17:53)
[2021-06-27] MEDS: CLOPIDOGREL 75MG TABLET PO SCH (08:48)
[2021-06-27] MEDS: POLYETHYLENE GLYCOL 3350 (17GM) 1 DOSE PACK PO SCH (09:00)
[2021-06-27 09:10] LABS: FOLATE HEMATOCRIT 27.3 % (34.0-46.6)
[2021-06-27] MEDS ORDERED: ATOR80TA PO (15:00)
[2021-06-27] MEDS ORDERED: ASPI-1497 PO (15:00)
[2021-06-27] MEDS ORDERED: CLOP-31 MT (15:00)
[2021-06-27] MEDS ORDERED: METO-539 MT (15:00)
[2021-06-27] MEDS ORDERED: ALBU90AE INH (15:00)
[2021-06-27] MEDS ORDERED: HYDR-4001 MT (15:00)
[2021-06-27] MEDS ORDERED: AMLO5TAB4 PO (15:00)
[2021-06-27] MEDS: ATORVASTATIN CALCIUM 40MG TABLET PO SCH (21:19)
[2021-06-27] MEDS: METOPROLOL TARTRATE 50MG TABLET PO SCH (21:20)
[2021-06-27] MEDS: SENNOSIDES/DOCUSATE SOD 8.6/50MG TABLET PO SCH (21:22)
[2021-06-28] VITALS (13 sets, daily range): BP systolic 129–171; BP diastolic 71–98
[2021-06-28] MEDS: DEXTROSE 5% WATER 1,000 ML IV SCH ×2 (00:03→16:27)
[2021-06-28] MEDS: HYDRALAZINE 20MG/ML VIAL IV PRN (02:18)
[2021-06-28] MEDS: IPRATROPIUM/ALBUTEROL 0.5-3(2.5)MG/3ML NEB HHN SCH ×5 (04:10→22:02)
[2021-06-28 05:23] LABS: PHOSPHORUS 2.6 mg/dL (2.5-4.9)
[2021-06-28] MEDS: LEVOTHYROXINE SODIUM 50MCG TABLET PO SCH (06:16)
[2021-06-28] MEDS: BLOOD SUGAR DIAGNOSTIC STRIP TEST SCH ×4 (06:53→21:00)
[2021-06-28 06:59] LABS: BASOPHILS % 0.4 % (0.0-2.0); HEMATOCRIT. 29.1 % (36.0-48.0); HEMOGLOBIN. 9.4 g/dL (12.0-16.0); LYMPHOCYTES % 11.3 % (20.0-50.0); MEAN CORPUSCULAR HEMOGLOBIN 29.7 pg (28.0-32.0); MEAN PLATELET VOLUME 8.7 fl (7.4-10.4); MONOCYTES % 8.4 % (2.0-8.0); NEUTROPHILS % 78.9 % (40.0-76.0); PLATELET 521 x1000/uL (130-400); RED BLOOD CELL COUNT 3.17 mill/uL (4.2-5.4); RED CELL DISTRIBUTION WIDTH 15.1 % (11.6-14.6)
[2021-06-28] MEDS: INSULIN LISPRO 100 UNITS/ML SUBCUT SCH ×4 (07:20→21:00)
[2021-06-28] MEDS: POLYETHYLENE GLYCOL 3350 (17GM) 1 DOSE PACK PO SCH (09:00)
[2021-06-28] MEDS: CLOPIDOGREL 75MG TABLET PO SCH (09:43)
[2021-06-28] MEDS: ASPIRIN 81MG TABLET PO SCH (09:43)
[2021-06-28] MEDS: BACITRACIN 15GM TUBE TOP SCH ×2 (09:43→17:52)
[2021-06-28] MEDS: PANTOPRAZOLE SODIUM 40 MG/VIAL IV SCH ×2 (09:43→17:52)
[2021-06-28] MEDS: THROAT LOZENGES-BENZOCAINE/MENTH/CETYLPYRD CL LOZENGES MM SCH ×3 (09:43→17:00)
[2021-06-28] MEDS: METOPROLOL TARTRATE 50MG TABLET PO SCH ×2 (09:44→21:59)
[2021-06-28] MEDS: AMLODIPINE 5MG TABLET PO SCH ×2 (09:44→21:59)
[2021-06-28 12:44] LABS: HEMATOCRIT 28.5 % (36.0-48.0); MEAN CORPUSCULAR VOLUME 91.8 fL (81.0-99.0); PLATELET 497 x1000/uL (130-400); RED CELL DISTRIBUTION WIDTH 15.8 % (11.6-14.6)
[2021-06-28 17:11] LABS: FOLATE RBC 1476 ng/mL (>498)
[2021-06-28] MEDS: ATORVASTATIN CALCIUM 40MG TABLET PO SCH (21:58)
[2021-06-28] MEDS: SENNOSIDES/DOCUSATE SOD 8.6/50MG TABLET PO SCH (22:00)
[2021-06-29] VITALS (10 sets, daily range): BP systolic 130–165; BP diastolic 65–100
[2021-06-29] MEDS: IPRATROPIUM/ALBUTEROL 0.5-3(2.5)MG/3ML NEB HHN SCH ×6 (01:53→21:29)
[2021-06-29] MEDS: BLOOD SUGAR DIAGNOSTIC STRIP TEST SCH ×4 (06:44→20:56)
[2021-06-29] MEDS: LEVOTHYROXINE SODIUM 50MCG TABLET PO SCH (06:50)
[2021-06-29 06:56] LABS: BASOPHILS % 0.4 % (0.0-2.0); EOSINOPHILS % 1.4 % (0.0-5.0); HEMATOCRIT. 27.4 % (36.0-48.0); HEMOGLOBIN. 8.8 g/dL (12.0-16.0); LYMPHOCYTES % 12.8 % (20.0-50.0); MEAN CORPUSCULAR HEMOGLOBIN 29.9 pg (28.0-32.0); MEAN CORPUSCULAR VOLUME 92.8 fL (81.0-99.0); MEAN PLATELET VOLUME 8.7 fl (7.4-10.4); MONOCYTES % 7.8 % (2.0-8.0); NEUTROPHILS % 77.6 % (40.0-76.0); PLATELET 455 x1000/uL (130-400); RED BLOOD CELL COUNT 2.96 mill/uL (4.2-5.4); RED CELL DISTRIBUTION WIDTH 15.2 % (11.6-14.6)
[2021-06-29] MEDS: INSULIN LISPRO 100 UNITS/ML SUBCUT SCH ×4 (07:20→21:04)
[2021-06-29 07:36] LABS: PHOSPHORUS 2.7 mg/dL (2.5-4.9)
[2021-06-29] MEDS: THROAT LOZENGES-BENZOCAINE/MENTH/CETYLPYRD CL LOZENGES MM SCH ×3 (08:34→16:58)
[2021-06-29] MEDS: ACETAMINOPHEN 325MG TABLET PO PRN (08:49)
[2021-06-29] MEDS: PANTOPRAZOLE SODIUM 40 MG/VIAL IV SCH ×2 (08:49→17:13)
[2021-06-29] MEDS: AMLODIPINE 5MG TABLET PO SCH (08:49)
[2021-06-29] MEDS: POLYETHYLENE GLYCOL 3350 (17GM) 1 DOSE PACK PO SCH (08:49)
[2021-06-29] MEDS: CLOPIDOGREL 75MG TABLET PO SCH (08:50)
[2021-06-29] MEDS: ASPIRIN 81MG TABLET PO SCH (08:50)
[2021-06-29] MEDS: METOPROLOL TARTRATE 50MG TABLET PO SCH ×2 (08:50→21:05)
[2021-06-29] MEDS: BACITRACIN 15GM TUBE TOP SCH ×2 (09:00→17:05)
[2021-06-29] MEDS ORDERED: DIATR MEGLU/DIATRIZOATE SOLN 120ML ONE (10:36)
[2021-06-29] MEDS ORDERED: MAGNESIUM 4 G PREMIX 100 ML IV NR (16:00)
[2021-06-29] MEDS: DEXTROSE 5% WATER 1,000 ML IV SCH (17:05)
[2021-06-29] MEDS: AMLODIPINE 10MG TABLET PO SCH (21:05)
[2021-06-29] MEDS: ATORVASTATIN CALCIUM 40MG TABLET PO SCH (21:05)
[2021-06-29] MEDS: SENNOSIDES/DOCUSATE SOD 8.6/50MG TABLET PO SCH (21:05)
[2021-06-30] VITALS (8 sets, daily range): BP systolic 99–163; BP diastolic 63–95
[2021-06-30] MEDS: IPRATROPIUM/ALBUTEROL 0.5-3(2.5)MG/3ML NEB HHN SCH ×4 (03:10→12:39)
[2021-06-30] MEDS: INSULIN LISPRO 100 UNITS/ML SUBCUT SCH ×2 (06:09→12:13)
[2021-06-30] MEDS: BLOOD SUGAR DIAGNOSTIC STRIP TEST SCH ×2 (06:09→11:50)
[2021-06-30] MEDS: LEVOTHYROXINE SODIUM 50MCG TABLET PO SCH (06:12)
[2021-06-30] MEDS: DEXTROSE 5% WATER 1,000 ML IV SCH (08:30)
[2021-06-30] MEDS: CLOPIDOGREL 75MG TABLET PO SCH (08:48)
[2021-06-30] MEDS: AMLODIPINE 10MG TABLET PO SCH (08:48)
[2021-06-30] MEDS: PANTOPRAZOLE SODIUM 40 MG/VIAL IV SCH (08:49)
[2021-06-30] MEDS: ASPIRIN 81MG TABLET PO SCH (08:49)
[2021-06-30] MEDS: POLYETHYLENE GLYCOL 3350 (17GM) 1 DOSE PACK PO SCH (08:49)
[2021-06-30] MEDS: METOPROLOL TARTRATE 50MG TABLET PO SCH (08:49)
[2021-06-30 10:17] LABS: BASOPHILS % 0.3 % (0.0-2.0); EOSINOPHILS % 1.4 % (0.0-5.0); HEMATOCRIT. 28.6 % (36.0-48.0); HEMOGLOBIN. 9.1 g/dL (12.0-16.0); LYMPHOCYTES % 14.5 % (20.0-50.0); MEAN CORPUSCULAR HEMOGLOBIN 29.1 pg (28.0-32.0); MEAN CORPUSCULAR VOLUME 91.9 fL (81.0-99.0); MEAN PLATELET VOLUME 8.2 fl (7.4-10.4); MONOCYTES % 6.6 % (2.0-8.0); NEUTROPHILS % 77.2 % (40.0-76.0); PLATELET 527 x1000/uL (130-400); RED BLOOD CELL COUNT 3.11 mill/uL (4.2-5.4); RED CELL DISTRIBUTION WIDTH 15.4 % (11.6-14.6)
[2021-06-30] MEDS: THROAT LOZENGES-BENZOCAINE/MENTH/CETYLPYRD CL LOZENGES MM SCH ×2 (12:05→13:00)
[2021-06-30] MEDS: BACITRACIN 15GM TUBE TOP SCH (12:06)
== END 2021-06-30 14:20 | disposition home health service (06) | DRG 233 ==
LOC: ER 09:22 → 6WST 14:15 → 7EST 18:24 → 7WST 06-10 14:52 → 7EST 06-10 15:56 → 3WST 06-13 12:20 → CVICU 06-17 09:04 → 3WST 06-23 20:33
PROVIDERS: ADMIT Internal Medicine; ATTEND Internal Medicine
PROC: 4A023N7 Measurement of Cardiac Sampling and Pressure, Left Heart, Percutaneous Approach (ICD-10-PCS; 2021-06-13)
PROC: B2111ZZ Fluoroscopy of Multiple Coronary Arteries using Low Osmolar Contrast (ICD-10-PCS; 2021-06-13)
PROC: 02HV33Z Insertion of Infusion Device into Superior Vena Cava, Percutaneous Approach (ICD-10-PCS; 2021-06-15)
PROC: B548ZZA Ultrasonography of Superior Vena Cava, Guidance (ICD-10-PCS; 2021-06-15)
PROC: B5181ZA Fluoroscopy of Superior Vena Cava using Low Osmolar Contrast, Guidance (ICD-10-PCS; 2021-06-15)
PROC: 02100Z9 Bypass Coronary Artery, One Artery from Left Internal Mammary, Open Approach (ICD-10-PCS; principal; 2021-06-17)
PROC: 021309W Bypass Coronary Artery, Four or More Arteries from Aorta with Autologous Venous Tissue, Open Approach (ICD-10-PCS; 2021-06-17)
PROC: 06BQ4ZZ Excision of Left Saphenous Vein, Percutaneous Endoscopic Approach (ICD-10-PCS; 2021-06-17)
PROC: 0W9B00Z Drainage of Left Pleural Cavity with Drainage Device, Open Approach (ICD-10-PCS; 2021-06-17)
PROC: 4A10X4Z Monitoring of Central Nervous Electrical Activity, External Approach (ICD-10-PCS; 2021-06-21)
PROC: 0D9670Z Drainage of Stomach with Drainage Device, Via Natural or Artificial Opening (ICD-10-PCS; 2021-06-21)
DX: I25.110 Atherosclerotic heart disease of native coronary artery with unstable angina pectoris (principal); I50.33 Acute on chronic diastolic (congestive) heart failure; J18.9 Pneumonia, unspecified organism; G93.41 Metabolic encephalopathy; I13.0 Hypertensive heart and chronic kidney disease with heart failure and stage 1 through stage 4 chronic kidney disease, or unspecified chronic kidney disease; N17.9 Acute kidney failure, unspecified; E87.0 Hyperosmolality and hypernatremia; J98.11 Atelectasis; K91.30 Postprocedural intestinal obstruction, unspecified as to partial versus complete; Q04.6 Congenital cerebral cysts; I82.611 Acute embolism and thrombosis of superficial veins of right upper extremity; N39.0 Urinary tract infection, site not specified; E11.65 Type 2 diabetes mellitus with hyperglycemia; D72.829 Elevated white blood cell count, unspecified; E03.9 Hypothyroidism, unspecified; E78.00 Pure hypercholesterolemia, unspecified; E78.5 Hyperlipidemia, unspecified; F02.80 Dementia in other diseases classified elsewhere, unspecified severity, without behavioral disturbance, psychotic disturbance, mood disturbance, and anxiety; G30.9 Alzheimer's disease, unspecified; E11.22 Type 2 diabetes mellitus with diabetic chronic kidney disease; F41.9 Anxiety disorder, unspecified; N18.30 Chronic kidney disease, stage 3 unspecified; R53.81 Other malaise; G90.8 Other disorders of autonomic nervous system; Z20.822 Contact with and (suspected) exposure to COVID-19; E83.52 Hypercalcemia; I65.21 Occlusion and stenosis of right carotid artery; Z79.02 Long term (current) use of antithrombotics/antiplatelets; Z79.82 Long term (current) use of aspirin; I25.2 Old myocardial infarction; Z86.73 Personal history of transient ischemic attack (TIA), and cerebral infarction without residual deficits; Z79.899 Other long term (current) drug therapy; Z87.11 Personal history of peptic ulcer disease; Z79.2 Long term (current) use of antibiotics; D64.89 Other specified anemias; K25.9 Gastric ulcer, unspecified as acute or chronic, without hemorrhage or perforation
CPT/HCPCS: 36415; 36573; 36600; 70551; 71045; 73080; 73610; 74018; 74176; 74250; 76770; 78582; 80047; 80048; 80053; 80061; 81003; 82043; 82140; 82270; 82375; 82550; 82553; 82570; 82607; 82728; 82747; 82805; 82962; 83540; 83550; 83735; 83880; 83935; 84100; 84132; 84145; 84300; 84443; 84484; 85014; 85025; 85027; 85044; 85347; 86850; 86900; 86920; 87070; 87426; 92610; 93005; 93306; 93458; 93880; 93970; 93971; 94640; 94667; 95816; 97110; 97116; 97163; 97166; 97530; 97535; 99285; A6261; A9558; C1725; C1729; C1751; C1758; C1769; C1887; C1893; C9113; J0330; J0360; J0690; J0696; J1265; J1644; J1650; J1815; J1940; J2250; J2270; J2405; J2440; J2543; J2704; J2710; J2720; J2765; J3010; J3370; J3475; J3480; J3490; J7040; J7050; J7060; J7070; J7608; L3908; P9041; P9047; Q9963; Q9967; A4315

== ENCOUNTER 2025-02-11 14:27 | Emergency (ER) | payer MEDICARE, OTHER ==
[~2025-02-11] VITALS: Ht 170.2 cm; Wt 111.0 kg
[~2025-02-11 14:27] MED LIST changes: +ALBU90AE INH; +AMLO5TAB5 PO; +ASPI-1497 PO; +ATOR-388 PO; -CIPR-263 MT; +CLOP-31 MT; +LEVO50TA8 PO; +METO-539 MT; +METO100T16 PO; -METR500T MT; +SACU1TAB PO; +TOPUD PO
[2025-02-11 14:30] VITALS: PULSE 76; RESP 16; O2SAT 90
[2025-02-11 14:32] VITALS: BP 184/92; TEMP 36.9; O2SAT 91
[2025-02-11] MEDS ORDERED: POLY10DR18 RIGHTEYE (18:44)
[2025-02-11] MEDS: FLUORESCEIN SODIUM 1MG/STRIP RIGHTEYE ONE (19:41)
[2025-02-11] MEDS: TETRACAINE 0.5% OPHTH DROPS 4ML RIGHTEYE ONE (19:42)
== END 2025-02-11 19:45 | disposition home or self-care (01) ==
LOC: ER 14:27
DX: H00.12 Chalazion right lower eyelid (principal); H10.9 Unspecified conjunctivitis; E11.9 Type 2 diabetes mellitus without complications; E78.00 Pure hypercholesterolemia, unspecified; F03.90 Unspecified dementia, unspecified severity, without behavioral disturbance, psychotic disturbance, mood disturbance, and anxiety; I10 Essential (primary) hypertension; Z79.02 Long term (current) use of antithrombotics/antiplatelets; Z79.82 Long term (current) use of aspirin; Z79.899 Other long term (current) drug therapy
CPT/HCPCS: 99283